=== PATIENT | female | born 1950 | race Caucasian/White ===

== ENCOUNTER → 2018-09-20 14:52 | Outpatient (CLI) | payer MEDICARE, OTHER, SELFPAY ==
--- NOTE | 2018-09-20 | DI.ECHO.S_ITS ---
[facility] +---------+ : : [address] : : : : [id number] : : : : Phone: [phone]+ Echocardiogram Report + + :Name: TAJ GUERRERO Study Date: 09/20/2018 Height: 62 in : [id number] Weight: 137 lb : : Gender: Female BSA: 1.6 m2 : :: 1950 Age: 67 yrs BP: 150/80 mmHg: :Reason For Study: HYPERTENSION : : Performed By: Caren Hernandez : :Referring: ZION RICO : + + Interpretation Summary Small left ventricular cavity with hyperdynamic function. The ejection fraction is estimated to be 65-70%. Grade I diastolic dysfunction. Mild mitral annular calcification. Mild mitral regurgitation. Mild aortic valve sclerosis. The ascending aorta is at the upper limits of normal in size. Procedure: A two-dimensional transthoracic echocardiogram with color flow and Doppler was performed. The study quality was technically good. There is no prior echocardiogram noted for this patient. The heart rate ranged between 80- 90 bpm during the study. Left Ventricle: The left ventricular cavity is small. There is normal left ventricular wall thickness. There is no echo evidence for significant left ventricular outflow tract obstruction. The left ventricle is hyperdynamic. The ejection fraction is estimated to be 65-70%. There are no focal wall motion abnormalities. Diastolic parameters suggest a relaxation abnormality of the left ventricle, consistent with probable normal filling pressures. Right Ventricle: The right ventricle is normal size. Right ventricular systolic function is at the lower limits of normal. Atria: The left atrial size is normal. Right atrium is small. There is no Doppler evidence for an interatrial shunt. Mitral Valve: There is mild mitral annular calcification. The mitral valve leaflets appear mildly thickened, but open well. There is mild mitral regurgitation. There is a flat closure plane of the mitral valve leaflets with a posteriorly directed jet of mild mitral regurgitation (best visualized from the parasteral long axis view). Aortic Valve: The aortic valve is normal in structure and function. There is mild aortic valve sclerosis. There is no aortic valve stenosis. No aortic regurgitation is present. Tricuspid Valve: The tricuspid valve is normal in structure and function. There is a trace or physiologic amount of tricuspid regurgitation. The right ventricular systolic pressure is estimated to be at least 25 mmHg based on an estimated right atrial pressure of 3 mm Hg. Pulmonic Valve: The pulmonic valve is normal in structure and function. There is a trace or physiologic amount of pulmonic regurgitation. Great Vessels: The aortic root is normal size. The ascending aorta is at the upper limits of normal in size. The aortic arch is normal in size. The pulmonary artery is normal size. The IVC is of normal diameter and collapses greater than 50% with a sniff. This suggests a low right atrial pressure of 3 mm Hg. Pericardium/ Pleura There is no pericardial effusion. There is no pleural effusion. MMode/2D Measurements & Calculations LVIDd: 3.9 cm LVOT diam: 1.9 cm LVIDs: 2.1 cm Ao root diam: 2.9 cm FS: 46.6 % asc Aorta Diam: 3.4 cm IVSd: 0.82 cm Ao Arch Diam (Prox Trans): 2.5 cm LVPWd: 0.73 cm LV ricci. diameter/BSA (cm/m^2): 2.4 LV sys. diameter/BSA (cm/m^2): 1.3 LA A2 area: 17.8 cm2 RA long axis: 4.7 cm LA A4 area: 17.9 cm2 RA area: 10.2 cm2 LA length (vol): 5.8 cm RA vol: 19.0 ml LA vol: 46.8 ml RA : 11.6 ml/m2 LA vol index: 28.8 ml/m2 RVD1 (basal): 2.5 cm TAPSE: 1.7 cm Doppler Measurements & Calculations Ao V2 max: 173.8 cm/sec LVOT Max Declan: 115.6 cm/sec Ao V2 mean: 124.8 cm/sec LV V1 max P.3 mmHg Ao max P.1 mmHg LV V1 VTI: 17.8 cm Ao mean P.7 mmHg VADIM(I,D): 1.5 cm2 Ao V2 VTI: 32.5 cm VADIM(V,D): 1.8 cm2 sev ratio: 0.55 VADIM indexed to BSA (cm^2/m^2): 0.91 MV E max declan: 78.8 cm/sec TR max declan: 236.2 cm/sec MV A max declan: 113.0 cm/sec TR max P.3 mmHg MV E/A: 0.70 Med Peak E' Declan: 10.8 cm/sec E/E' med: 7.3 Lat Peak E' Declan: 9.1 cm/sec E/E' lat: 8.7 E/e' average: 8.0 MV dec time: 0.45 sec Electronically signed by: Mili Tavarez on Reading Physician:09/21/2018 04:59 PM
== END ==
PROVIDERS: Family Provider Internal Medicine; PCP Internal Medicine; Visit Provider Student in an Organized Health Care Education/Training Program
DX: I08.0 Rheumatic disorders of both mitral and aortic valves (principal); I10 Essential (primary) hypertension
CPT/HCPCS: 93306

== ENCOUNTER → 2018-12-25 14:30 | Outpatient (CLI) | payer MEDICARE, OTHER, SELFPAY ==
--- NOTE | 2018-12-25 | DI.MG.S_ITS ---
BILATERAL DIGITAL SCREENING MAMMOGRAM 3D/2D WITH CAD: 12/25/2018 CLINICAL: Routine screening. Family history of breast cancer. Comparison is made to exams dated: 11/17/2017 mammogram - [facility], 08/18/2016 mammogram, and 07/31/2015 mammogram - outside location. There are scattered fibroglandular elements in both breasts. Current study was also evaluated with a Computer Aided Detection (CAD) system. No significant masses, calcifications, or other findings are seen in either breast. There has been no significant interval change. IMPRESSION: NEGATIVE There is no mammographic evidence of malignancy. A 1 year screening mammogram is recommended. This exam was interpreted at Station ID: [id number]. NOTE: For mammograms, a report in lay terms will be sent to the patient. Approximately 15% of breast malignancies will not be visualized mammographically. In the management of a palpable breast mass, a negative mammogram must not discourage biopsy of a clinically suspicious lesion. Electronically Signed By: Elise tian/vu:01/01/2019 12:03:01 letter sent: Normal Exam ACR BI-RADS Category 1: Negative 3341F
== END ==
PROVIDERS: PCP Internal Medicine; Visit Provider Student in an Organized Health Care Education/Training Program
DX: Z12.31 Encounter for screening mammogram for malignant neoplasm of breast (principal); Z80.3 Family history of malignant neoplasm of breast
CPT/HCPCS: 77063; 77067

== ENCOUNTER 2020-06-13 14:49 | Emergency (ER) | payer MEDICARE, OTHER, SELFPAY ==
[2020-06-13 15:22] VITALS: BP 153/69; PULSE 68; RESP 17; TEMP 36.9; O2SAT 99; BMI 24.7
--- NOTE | 2020-06-13 15:42 | DI.RAD.S_ITS ---
PROCEDURE: XR SHOULDER RT MIN 2V INDICATIONS: fall TECHNIQUE: 2 views of the shoulder were acquired. COMPARISON: [facility], , CHEST 1 VIEW, 02/18/2018, 19:10. FINDINGS: Bones: There is an impacted, comminuted fracture seen involving the right humeral neck and right humeral head. No definite shoulder dislocation is seen. The visualized ribs appear intact. No suspicious lytic or blastic lesions are seen. Age-appropriate bony degenerative changes are seen. Soft tissues: No suspicious soft tissue calcifications. IMPRESSION: Impacted, comminuted fracture of the right humeral head and neck. Dictated by: Jewel Chávez M.D. on 06/13/2020 at 15:13 Approved by: Jewel Chávez M.D. on 06/13/2020 at 15:14
--- NOTE | 2020-06-13 16:12 | ED_ITS ---
HPI - Extremity Injury (Upper) <DALY Bonilla - Last Filed: 06/14/20 00:30> General Chief Complaint: Extremity Injury, Upper Stated Complaint: injured her right shoulder from a fall Time Seen by Provider: 06/13/20 15:54 Source: patient Mode of arrival: Wheelchair Limitations: no limitations History of Present Illness HPI narrative: This is a 69 year female, former smoker, who has history of hypertension and hyperlipidemia presents to ED with significant other with chief complain of right anterior shoulder pain after [place] and had status post FOOSH on right hand 2 hours prior coming into ED. Patient denies injuring her head, neck or other areas. Patient is not currently on blood thinner. Patient right dominant hand. Patient reports intact sensation and is able to move her fingers however pain increases with little movements with right hand. Denies previous injury to the affected arm. Related Data Home Medications Medication Instructions Recorded Confirmed amlodipine 5 mg PO DAILY 06/13/20 06/13/20 atorvastatin [Lipitor] 10 mg PO BEDTIME 06/13/20 06/13/20 cephalexin [Keflex] 250 mg PO Q6H 06/13/20 06/13/20 venlafaxine 37.5 mg PO DAILY 06/13/20 06/13/20 Previous Rx's Medication Instructions Recorded ondansetron HCl [Zofran] 4 mg PO BID-TID PRN #7 tab 06/13/20 oxycodone-acetaminophen [Percocet] 1 tab PO TID PRN #14 tab 06/13/20 Allergies Allergy/AdvReac Type Severity Reaction Status Date / Time No Known Drug Allergies Allergy Verified 06/13/20 15:28 Review of Systems <DALY Bonilla - Last Filed: 06/14/20 00:30> Review of Systems Narrative: General: Denies fever, chills, fatigue, malaise, sweats. HEENT: Denies sinus pain, ear pain, sore throat, difficulty swallowing, dizziness. Respiratory: Denies dyspnea, cough, wheezing, hemoptysis, sputum. Cardiovascular: Denies chest pain, palpitations, orthopnea, edema. Gastrointestinal: Denies nausea, vomiting, abdominal pain, diarrhea, constipation, melena. Musculoskeletal: See HPI Skin: Denies rash, skin lesions, or other. Neurologic: Denies weakness, headache, numbness, change in speech, confusion, seizures, incoordination. Psychiatric: No concerning psychosocial issues. Patient History <DALY Bonilla - Last Filed: 06/14/20 00:30> Medical History Dental infection (Acute) Depression (Acute) Hyperlipidemia (Acute) Social History Smoking Status: Former smoker Smoking Status: Former smoker alcohol intake frequency: a few times a week Substance Use Type: does not use Exam <ADLY Bonilla - Last Filed: 06/14/20 00:30> Narrative Exam Narrative: General appearance: well developed, well nourished, in no acute distress. Head: normocephalic, atraumatic, no scalp lesions, non-tender. ENT: Hearing grossly intact. Airway patent. Neck/Thyroid: neck supple, full range of motion, no visible masses or meningeal signs. No JVD, non-tender without lymphadenopathy. Skin: no suspicious rashes, lesions over visible areas. Warm and dry and appropriate color for ethnicity. Heart: no clubbing, no cyanosis, no edema. Lungs: Breathing even and unlabored. No stridor. No accessory muscles used. Able to speak in full sentences. Chest: normal shape and expansion. Abdomen: non-obese, non-distended. Neurologic: alert and oriented. Cognitive exam, [employer] and PNS grossly intact on informal exam. Psych: good eye contact, normal affect. Initial Vital Signs Initial Vital Signs: Vital Signs Temperature 98.5 F 06/13/20 15:22 Pulse Rate 68 06/13/20 15:22 Respiratory Rate 17 06/13/20 15:22 Blood Pressure 153/69 H 06/13/20 15:22 Pulse Oximetry 99 06/13/20 15:22 Extrem Right upper extremity: normal to inspection, normal capillary refill, no joint enlargement, shoulder/upper arm Details: normal to inspection, tenderness Location: of the A-C joint and of the proximal humerus and abnormal ROM Details: held in an abnormal fashion Details: in ADduction, pain with active ROM and pain with passive ROM; no swelling, elbow/forearm Details: normal to inspection; no tenderness and no swelling, wrist Details: normal to inspection; no tenderness and no swelling and hand Details: normal to inspection, normal capillary refill, neuromotor exam normal, neurosensory exam normal, tendon exam normal, vascular exam Details: radial pulse present and normal capillary refill and normal ROM of fingers; no tenderness; ROM limited, no cyanosis and no edema <Jeny Patino DO - Last Filed: 06/14/20 08:00> Initial Vital Signs Initial Vital Signs: Vital Signs Temperature 98.5 F 06/13/20 15:22 Pulse Rate 68 06/13/20 15:22 Respiratory Rate 17 06/13/20 15:22 Blood Pressure 153/69 H 06/13/20 15:22 Pulse Oximetry 99 06/13/20 15:22 Procedures <DALY Bonilla - Last Filed: 06/14/20 00:30> Orthopedic Splinting/Casting Injury #1: Side: right Upper Extremity Injury Location: shoulder Upper Extremity Immobilizer: sling/shoulder immobilizer Post splinting neuro exam: intact Post splinting vascular exam: intact Placed by: Nursing Scores <DALY Bonilla - Last Filed: 06/14/20 00:30> GCS Efra coma scale eye opening: Spontaneous Efra coma scale verbal response: Orientated Efra coma scale motor response: Obey commands Efra coma scale total score: 15 Course <DALY Bonilla - Last Filed: 06/14/20 00:30> Orders Ordered: Discontinued Medications Acetaminophen (Tylenol) 650 mg PO NOW ONE Stop: 06/13/20 16:13 Last Admin: 06/13/20 16:42 Dose: 650 mg Documented by: ANA Hydrocodone Bitart/Acetaminophen (Swan 5/325) 1 tab PO NOW ONE Stop: 06/13/20 16:32 Last Admin: 06/13/20 16:42 Dose: 1 tab Documented by: ANA Hydrocodone Bitart/Acetaminophen (Vicodin 5/325 Prepack) 1 bottle MISC SEEINSTR ONE Stop: 06/13/20 17:50 Last Admin: 06/13/20 18:25 Dose: 1 bottle Documented by: KAREN Ibuprofen (Advil) 400 mg PO NOW ONE Stop: 06/13/20 16:13 Last Admin: 06/13/20 16:42 Dose: 400 mg Documented by: ANA Morphine Sulfate (Morphine) 4 mg IM NOW ONE Stop: 06/13/20 17:37 Last Admin: 06/13/20 17:42 Dose: 4 mg Documented by: ANA Ondansetron HCl (Zofran Odt) 4 mg SL NOW ONE Stop: 06/13/20 18:05 Last Admin: 06/13/20 18:09 Dose: 4 mg Documented by: ANA Vital Signs Vital signs: Vital Signs - 8 hr 06/13/20 18:29 Pulse Rate 85 Blood Pressure 148/70 H Pulse Oximetry 97 <Jeny Patino DO - Last Filed: 06/14/20 08:00> Orders Ordered: Discontinued Medications Acetaminophen (Tylenol) 650 mg PO NOW ONE Stop: 06/13/20 16:13 Last Admin: 06/13/20 16:42 Dose: 650 mg Documented by: ANA Hydrocodone Bitart/Acetaminophen (Swan 5/325) 1 tab PO NOW ONE Stop: 06/13/20 16:32 Last Admin: 06/13/20 16:42 Dose: 1 tab Documented by: ANA Hydrocodone Bitart/Acetaminophen (Vicodin 5/325 Prepack) 1 bottle MISC SEEINSTR ONE Stop: 06/13/20 17:50 Last Admin: 06/13/20 18:25 Dose: 1 bottle Documented by: KAREN Ibuprofen (Advil) 400 mg PO NOW ONE Stop: 06/13/20 16:13 Last Admin: 06/13/20 16:42 Dose: 400 mg Documented by: ANA Morphine Sulfate (Morphine) 4 mg IM NOW ONE Stop: 06/13/20 17:37 Last Admin: 06/13/20 17:42 Dose: 4 mg Documented by: ANA Ondansetron HCl (Zofran Odt) 4 mg SL NOW ONE Stop: 06/13/20 18:05 Last Admin: 06/13/20 18:09 Dose: 4 mg Documented by: ANA Vital Signs Vital signs: Vital Signs - 8 hr 06/13/20 18:29 Pulse Rate 85 Blood Pressure 148/70 H Pulse Oximetry 97 MDM - Extremity Injury (Upper) <DALY Bonilla - Last Filed: 06/14/20 00:30> Differential Diagnosis Differential diagnosis: Likely dislocation of shoulder, fracture of humerus and other (Shoulder fracture) Medical Records Attestation: I reviewed the patient's medical records. Imaging Data XR-Shoulder RT: Radiologist's Impression: [address] [address] XRay Report Signed Patient: Lanette Mora EMR#: [id number] : 8Acct:[id number] Age/Sex: 69 / FDate of Service: 06/13/20 Loc: ED Accession Number: [id number] Procedure: XR shoulder RT min 2V Ordering Provider: Enrique Serrato PROCEDURE: XR SHOULDER RT MIN 2V INDICATIONS: fall TECHNIQUE: 2 views of the shoulder were acquired. COMPARISON: [facility], , CHEST 1 VIEW, 02/18/2018, 19:10. FINDINGS: Bones: There is an impacted, comminuted fracture seen involving the right humeral neck and right humeral head. No definite shoulder dislocation is seen. The visualized ribs appear intact. No suspicious lytic or blastic lesions are seen. Age-appropriate bony degenerative changes are seen. Soft tissues: No suspicious soft tissue calcifications. IMPRESSION: Impacted, comminuted fracture of the right humeral head and neck. Dictated by: Jewel Chávez M.D. on 06/13/2020 at 15:13 Approved by: Jewel Chávez M.D. on 06/13/2020 at 15:14 MDM Narrative Medical decision making narrative: Right shoulder x-ray shows impacted come in as take fracture of the right humeral head and neck. With no definite shoulder dislocation was appreciated. Patient has intact sensation distally and intact mobility to fingers and denies pain in elbow or wrist. Patient reports increasing pain with little movements. Patient initially medicated with 1 tab of Swan, Tylenol, ibuprofen and applied ice pack on affected site for pain without much improvement. Additionally administer morphine 4 mg IM injection which patient found relief of pain. Due to morphine side effects with nausea patient given 4 mg of ODT Zofran. After pain has been managed, was able to apply shoulder immobilizer. Patient discharged to home with prepack Swan and transmitted Rx for oxycodone and Zofran as needed use with narcotic pain medication precautions. Patient advised to use [id number] Tylenol and or Motrin as needed for baseline pain management. Consulted Dr. Davis and he recommended pain management and using shoulder immobilizer and to follow-up with [facility] this coming week. Return precautions were discussed with patient and patient verbalized understanding and agreement with treatment plan. Discharge Plan Departure Patient Disposition: Home Clinical Impression: Fracture, humerus, anatomical neck Qualifiers: Encounter type: initial encounter Fracture type: closed Laterality: right Qualified Code(s): S42.291A - Other displaced fracture of upper end of right humerus, initial encounter for closed fracture Fall Qualifiers: Encounter type: initial encounter Qualified Code(s): W19.XXXA - Unspecified fall, initial encounter Discharge Date/Time: 06/13/20 18:37 Instructions: DI for Humeral Fracture Activity Restrictions/Additional Instructions: You have been diagnosed with [right impacted comminuted fracture of right humeral head and neck on dominant hand.]. What to do: *Take your medications as directed. Please take [id number] Tylenol and or Motrin as needed for discomfort. Tylenol 650 up to 3 to 4 times a day as needed. Ibuprofen 400 mg up to 3 to 4 times a day as needed for pain. For severe pain, you can take a Percocet which is narcotic pain medication. It can cause sedation so please do not drive, drink alcohol, or operate heavy equipments. Also he can cause constipation so please take precautions to prevent this by using [id number] stool softener, increase water intake and high fiber diet. Adults can take upto [id number] mg of Tylenol products in 24 hour. Percocet has been transmitted to [facility] in [place]. *Follow up with your primary care provider in 2-3 days, call for an appointment. Please contact [facility] on Monday. Let them know you were seen in the ED and that we asked you to be seen in follow up. *Return to ED if you have any new, worsening, or concerning symptoms, such as [chest pain, breathing difficulty, unable to tolerate fluids, increasing pain/numbness/weakness to affected arm, fever or any other concerns]. Prescriptions: New oxycodone-acetaminophen [Percocet] 5-325 mg tablet 1 tab PO TID PRN (Reason: pain) Qty: 14 RF: 0 ondansetron HCl [Zofran] 4 mg tablet 4 mg PO BID-TID PRN (Reason: nausea and vomiting) Qty: 7 RF: 0 No Action venlafaxine 37.5 mg capsule,extended release 24hr 37.5 mg PO DAILY RF: 0 atorvastatin [Lipitor] 10 mg Tablet 10 mg PO BEDTIME RF: 0 cephalexin [Keflex] 250 mg Capsule 250 mg PO Q6H RF: 0 amlodipine 5 mg Tablet 5 mg PO DAILY RF: 0 Referrals: [facility] [Provider Group] Chance Mcgowan MD [Primary Care Provider] - <Jeny Patino DO - Last Filed: 06/14/20 08:00> Cosign ED Attending Cosjorge luisature Attestation: I was immediately available in the department for consultation. Documentation has been reviewed. I agree with assessment and plan.
[2020-06-13] MEDS: ACETAMINOPHEN 325 MG TABLET 650 MG PO (16:42)
[2020-06-13] MEDS: HYDROCODONE/ACET 5/325 TABLET 1 TAB PO (16:42)
[2020-06-13] MEDS: IBUPROFEN 400 MG TABLET PO (16:42)
[2020-06-13] MEDS: MORPHINE 4 MG/ML INJ IM (17:42)
[2020-06-13] MEDS: ONDANSETRON 4 MG ODT SL (18:09)
[2020-06-13] MEDS: HYDROCODONE/ACET 5/325 PREPACK 1 BOTTLE MISC (18:25)
[2020-06-13 18:29] VITALS: BP 148/70; PULSE 85; O2SAT 97
== END 2020-06-13 18:37 | disposition home or self-care (01) ==
PROVIDERS: Emergency Provider Nurse Practitioner Family; PCP Internal Medicine
DX: S42.291A Other displaced fracture of upper end of right humerus, initial encounter for closed fracture (principal); W19.XXXA Unspecified fall, initial encounter
CPT/HCPCS: 73030; 96372; 99283; 99284; J2270

== ENCOUNTER → 2020-07-07 11:59 | Outpatient (CLI) | payer MEDICARE, OTHER, SELFPAY ==
--- NOTE | 2020-07-07 | DI.CT.S_ITS ---
PROCEDURE: CT UE RT WO CON INDICATIONS: Proximal humerus fracture TECHNIQUE: Noncontrast 1-1.5 mm thick sections acquired from the acromioclavicular joint to the inferior scapula, with coronal and sagittal reformatting. COMPARISON: [facility], [place], XR SHOULDER 2+ VIEWS RIGHT, 06/23/2020, 14:09. FINDINGS: Image quality: Excellent. Bones: As seen on prior shoulder radiograph, acute comminuted and impacted fracture involving the surgical neck /proximal humeral shaft is seen with superior migration of humeral shaft and fracture line extending to involve both greater and lesser tuberosities. No displacement of the greater tuberosity fragment is seen. There is up to 1.2 cm impaction at fracture site. Slight antral and lateral displacement of proximal humeral shaft is seen in relation to humeral head. No other fracture is seen. No shoulder dislocation. Mild acromioclavicular joint osteoarthritic changes are seen. Soft tissues: There is soft tissue swelling over proximal humeral shaft fracture site. Small glenohumeral joint effusion is seen. No gross full-thickness rotator cuff tendon rupture is noted. IMPRESSION: 1. Comminuted and impacted humeral neck/proximal shaft fracture as above. No other fracture or dislocation. Mild acromioclavicular joint osteoarthritis. 2. Small to moderate joint effusion. No gross full-thickness rotator cuff tendon rupture. Dictated by: Fernando Miranda M.D. on 07/07/2020 at 14:56 Approved by: Fernando Miranda M.D. on 07/07/2020 at 14:59
== END ==
PROVIDERS: PCP Student in an Organized Health Care Education/Training Program; Referring Provider Student in an Organized Health Care Education/Training Program; Visit Provider Orthopaedic Surgery
DX: S42.211A Unspecified displaced fracture of surgical neck of right humerus, initial encounter for closed fracture (principal); M19.011 Primary osteoarthritis, right shoulder; X58.XXXA Exposure to other specified factors, initial encounter
CPT/HCPCS: 73200

== ENCOUNTER → 2020-09-01 16:31 | Outpatient (CLI) | payer MEDICARE, OTHER, SELFPAY ==
--- NOTE | 2020-09-01 | DI.MG.S_ITS ---
BILATERAL DIGITAL SCREENING MAMMOGRAM 3D/2D WITH CAD: 09/01/2020 CLINICAL: Routine screening. Family history of breast cancer. Comparison is made to exams dated: 12/25/2018 mammogram, 11/17/2017 mammogram - [facility], 08/18/2016 mammogram, 07/23/2015 mammogram, and 03/05/2013 mammogram - outside location. The tissue of both breasts is heterogeneously dense. This may lower the sensitivity of mammography. Current study was also evaluated with a Computer Aided Detection (CAD) system. No significant masses, calcifications, or other findings are seen in either breast. There has been no significant interval change. IMPRESSION: NEGATIVE There is no mammographic evidence of malignancy. A 1 year screening mammogram is recommended. This exam was interpreted at Station ID: [id number]. NOTE: For mammograms, a report in lay terms will be sent to the patient. Approximately 15% of breast malignancies will not be visualized mammographically. In the management of a palpable breast mass, a negative mammogram must not discourage biopsy of a clinically suspicious lesion. Electronically Signed By: Abe lópez/vu:09/01/2020 17:42:43 letter sent: Normal Exam ACR BI-RADS Category 1: Negative [id number]
== END ==
PROVIDERS: PCP Student in an Organized Health Care Education/Training Program; Referring Provider Student in an Organized Health Care Education/Training Program; Visit Provider Student in an Organized Health Care Education/Training Program
DX: Z12.31 Encounter for screening mammogram for malignant neoplasm of breast (principal); Z80.3 Family history of malignant neoplasm of breast
CPT/HCPCS: 77063; 77067

== ENCOUNTER → 2020-09-25 11:36 | Outpatient (CLI) | payer MEDICARE, OTHER, SELFPAY ==
[2020-09-25 16:23] LABS: Vitamin D 25 Hydroxy (D3) 20.4 ng/mL (30.0-100.0)
[2020-09-26 12:38] LABS: Calcium 10.3 mg/dL (8.7-10.3); Parathyroid Hormone, Intact 90 pg/mL (15-65)
== END ==
PROVIDERS: PCP Student in an Organized Health Care Education/Training Program; Referring Provider Student in an Organized Health Care Education/Training Program; Visit Provider Student in an Organized Health Care Education/Training Program
DX: M85.852 Other specified disorders of bone density and structure, left thigh (principal); N95.9 Unspecified menopausal and perimenopausal disorder; Z87.891 Personal history of nicotine dependence
CPT/HCPCS: 36415; 77080; 82306; 82310; 83970

== ENCOUNTER → 2020-10-26 11:16 | Outpatient (CLI) | payer MEDICARE, OTHER, SELFPAY ==
[2020-10-26 12:28] LABS: COVID19 -Nasal RAPID Negative (Negative)
== END ==
PROVIDERS: PCP Student in an Organized Health Care Education/Training Program; Visit Provider Surgery
DX: Z01.812 Encounter for preprocedural laboratory examination (principal); Z20.822 Contact with and (suspected) exposure to COVID-19
CPT/HCPCS: 87635; C9803

== ENCOUNTER 2020-10-27 13:18 | Day surgery (SDC) | payer MEDICARE, SELFPAY ==
[2020-10-27] VITALS (7 sets, daily range): BP systolic 109–160; BP diastolic 57–90; PULSE 71–100; RESP 12–18; TEMP 36–37; O2SAT 97–100; BMI 24.5
[2020-10-27] MEDS: SODIUM CHLORIDE 0.9% 1,000 ML 200 ML IV (13:43)
--- NOTE | 2020-10-27 14:06 | P.HP_ITS ---
History of Present Illness History of Present Illness Date Patient Seen: 10/27/20 Time Patient Seen: 14:06 Chief complaint: SD Narrative: This is a 70-year-old woman here for follow-up screening colonoscopy. Per the patient she had a screening colonoscopy 10 years ago when she lived in [place], with no polyps found on that exam. I do not have a copy of that procedure report. She denies any history of melena, hematochezia, unexplained abdominal pain, or unexplained weight loss since the last colonoscopy. She denies any family history of colon polyps or colon cancers. She says she is otherwise well, denies any significant cardiac pulmonary or renal abnormalities. ROS positive for sinus drainage, anxiety, depression. Thirteen system review is otherwise negative other than as mentioned below and in HPI. PE: GENERAL: Well groomed and cooperative. Appears stated age. Answers questions promptly and appropriately. Vital signs noted. HENT: Normocephalic, atraumatic. Hearing intact. EYES: Conjunctiva pink, sclera white, no periorbital swelling. CARDIOVASCULAR: Regular rate. No pedal edema. RESPIRATORY: Non-tachypneic, breathing comfortably on room air. GASTROINTESTINAL: Abdomen soft and non-distended GENITALURINARY: No flank tenderness. MUSCULOSKELETAL: Equal tone and mass bilaterally. SKIN: Warm, dry, soft, appropriate color for ethnicity. No other lesions, rashes, or wounds. NEURO: Alert and Oriented X 3. No gross sensory deficits, or cognitive issues. PSYCH: Appropriate affect and mood. Patient History Medical History (Updated 10/27/20 @ 14:09 by Vangie Curry MD) Dental infection Depression Hyperlipidemia Family & Social History Social History: household members spouse Tobacco & Substance use: Smoking Status Former smoker alcohol intake frequency a few times a month Substance Use Type does not use Meds Home Medications and Allergies Home Medications Medication Instructions Recorded Confirmed Type amlodipine 5 mg PO DAILY 06/13/20 10/27/20 History atorvastatin [Lipitor] 10 mg PO BEDTIME 06/13/20 10/27/20 History venlafaxine 37.5 mg PO DAILY 06/13/20 10/27/20 History Allergies Allergy/AdvReac Type Severity Reaction Status Date / Time No Known Drug Allergies Allergy Verified 06/13/20 15:28 Exam Vital Signs (past 8 hours): - 10/27/20 13:35 Temperature 98.6 F Pulse Rate 100 H Respiratory Rate 16 Blood Pressure 160/90 H Pulse Oximetry 100 Oxygen Delivery Method Room Air Assessment & Plan Assessment and plan (1) At average risk for colon cancer: Status: Acute (2) Encounter for screening colonoscopy: Status: Acute (3) Hypertension: Status: Acute (4) History of cardiac murmur: Status: Acute (5) History of deep vein thrombosis: Status: Acute (6) Hx of cholecystectomy: Status: Acute (7) Depression: Status: Acute Assessment & Plan narrative: This 70-year-old woman of average risk for colon cancer, and it is been 10 years since her last screening colonoscopy. Risks and benefits of screening colonoscopy and possible polypectomy were discussed with the patient including risk of bleeding, perforation, need for additional procedures, risks of anesthesia. The patient desires to proceed with the colonoscopy procedure. Plan: Proceed to the endoscopy suite for colonoscopy with procedural sedation COVID-19 COVID-19 status: Negative Result date/Date tested (Pos, Neg/Pending): 10/26/20 Time Spent With Patient Time with patient: 25 - 35 minutes Quality VTE Deep Vein Thrombosis/Pulmonary Embolism Present on Admission: No
--- NOTE | 2020-10-27 14:11 | P.OP.ENDO_ITS ---
Operative Date/Time/Diagnoses Date of procedure: 10/27/20 Time of procedure: 14:11 Pre-op diagnosis: Average risk for colon cancer, due for screening colonoscopy Post-op diagnosis: other (Normal colon) Procedure & Clinicians Study performed: Colonoscopy Procedural sedation performed by the endoscopist Same procedure as scheduled: Yes Indications: Average risk for colon cancer, ten years since last colonoscopy Surgeon: Vangie Curry Procedure Notes SCOAP/Timeout: Performed Procedure in detail: The patient was brought to the room and placed in left lateral decubitus position with all bony prominences padded. A time-out was performed and then the patient was given procedural sedation starting with 4 mg of Versed and 100 mcg of fentanyl. A total of 5 mg of Versed and 150 micro g of fentanyl were given for the entire procedure. Vitals were monitored throughout the procedure and remained stable. Once adequately sedated, the procedure was begun. A rectal exam was performed revealing no abnormalities. The colonoscope was then introduced to the rectum and advanced to the cecum in the usual fashion. The cecum was identified by the appendiceal orifice, the mucosal tri- fold, and the ileocecal valve. The scope was then retracted while rotating side to side and examining each mucosal fold. At the conclusion of the procedure retroflexion was performed and small grade 1-2 internal hemorrhoids without stigmata of bleeding were seen. The scope was then withdrawn from the rectum the procedure was concluded. The patient tolerated the procedure well and was transferred to the PACU in stable condition. Scope withdrawal time: 11 Sedation minutes: 25 Specimen(s): none sent Complications: none Impression: Normal colon Post-procedure Recommendations: Colonscopy in 10 years (Repeat colonoscopy in 10 years if healthy enough for the procedure at that time. Consider repeat colonoscopy sooner than 10 years if clinically indicated.) Follow up: as needed Disposition: PACU
[2020-10-27] MEDS: fentaNYL 250 MCG/5 ML INJ IV (14:24)
[2020-10-27] MEDS: MIDAZOLAM 5 MG/5 ML VIAL IV (14:24)
--- NOTE | 2020-10-27 15:28 | SUR.PHASEII ---
called, available for pickler helper, pt w/o pain or nausea and belly is soft.
== END 2020-10-27 15:29 | disposition home or self-care (01) ==
PROVIDERS: PCP Student in an Organized Health Care Education/Training Program; Referring Provider Student in an Organized Health Care Education/Training Program; Visit Provider Surgery
PROC: 0DJD8ZZ Inspection of Lower Intestinal Tract, Via Natural or Artificial Opening Endoscopic (ICD-10-PCS; CPT 45378; principal; 2020-10-27 14:30)
DX: Z12.11 Encounter for screening for malignant neoplasm of colon (principal); F32.9 Major depressive disorder, single episode, unspecified; E78.5 Hyperlipidemia, unspecified; K64.0 First degree hemorrhoids
CPT/HCPCS: G0121; 99152; J2250; J3010

== ENCOUNTER → 2021-09-14 17:34 | Outpatient (CLI) | payer MEDICARE, SELFPAY ==
--- NOTE | 2021-09-14 | DI.MG.S_ITS ---
BILATERAL DIGITAL SCREENING MAMMOGRAM 3D/2D WITH CAD: 09/14/2021 CLINICAL: Routine screening. Family history of breast cancer. Comparison is made to exams dated: 09/01/2020 mammogram, 12/25/2018 mammogram, and 11/17/2017 mammogram - [facility]. The tissue of both breasts is heterogeneously dense. This may lower the sensitivity of mammography. Current study was also evaluated with a Computer Aided Detection (CAD) system. There is a possible asymmetry in the right breast middle depth central to the nipple seen on the craniocaudal view only. There is architectural distortion associated with the asymmetry. There is a possible asymmetry in the left breast anterior depth central to the nipple seen on the craniocaudal view only. There is architectural distortion associated with the asymmetry. No other significant masses or calcifications are seen in either breast. IMPRESSION: INCOMPLETE: NEEDS ADDITIONAL IMAGING EVALUATION The possible asymmetry in the right breast middle depth central to the nipple seen on the craniocaudal view only is indeterminate. A diagnostic mammogram and ultrasound is recommended. The possible asymmetry in the left breast anterior depth central to the nipple seen on the craniocaudal view only is indeterminate. A diagnostic mammogram and ultrasound is recommended. This exam was interpreted at Station ID: [id number]. NOTE: For mammograms, a report in lay terms will be sent to the patient. Approximately 15% of breast malignancies will not be visualized mammographically. In the management of a palpable breast mass, a negative mammogram must not discourage biopsy of a clinically suspicious lesion. Electronically Signed By: Kwabena Byers M.D., jr/vu:09/15/2021 11:18:39 letter sent: Additional Imaging Needed ACR BI-RADS Category 0: Incomplete 3340F
== END ==
PROVIDERS: PCP Student in an Organized Health Care Education/Training Program; Referring Provider Student in an Organized Health Care Education/Training Program; Visit Provider Student in an Organized Health Care Education/Training Program
DX: Z12.31 Encounter for screening mammogram for malignant neoplasm of breast (principal); Z80.3 Family history of malignant neoplasm of breast
CPT/HCPCS: 77063; 77067

== ENCOUNTER → 2021-10-14 13:23 | Outpatient (CLI) | payer MEDICARE, SELFPAY ==
--- NOTE | 2021-10-14 | DI.MG.S_ITS ---
BILATERAL DIGITAL DIAGNOSTIC MAMMOGRAM 3D/2D WITH ADDITIONAL VIEWS: 10/14/2021 CLINICAL: Additional evaluation requested from prior study. Comparison is made to exams dated: 09/14/2021 mammogram, 09/01/2020 mammogram, 12/25/2018 mammogram, and 11/17/2017 mammogram - [facility]. The tissue of both breasts is heterogeneously dense. This may lower the sensitivity of mammography. The previously seen possible asymmetries in the right and left breast are no longer visualized, presumably secondary to superimposed fibroglandular breast tissue on the prior exam. No significant masses, calcifications, or other findings are seen in either breast. IMPRESSION: NEGATIVE There is no mammographic evidence of malignancy. A 1 year screening mammogram is recommended. This exam was interpreted at Station ID: [id number]. NOTE: For mammograms, a report in lay terms will be sent to the patient. Approximately 15% of breast malignancies will not be visualized mammographically. In the management of a palpable breast mass, a negative mammogram must not discourage biopsy of a clinically suspicious lesion. Electronically Signed By: Rios bernabe/vu:10/14/2021 13:57:58 letter sent: Normal Exam ACR BI-RADS Category 1: Negative 3341F
== END ==
PROVIDERS: PCP Student in an Organized Health Care Education/Training Program; Referring Provider Student in an Organized Health Care Education/Training Program; Visit Provider Student in an Organized Health Care Education/Training Program
DX: R92.8 Other abnormal and inconclusive findings on diagnostic imaging of breast (principal)
CPT/HCPCS: 77066; G0279

== ENCOUNTER → 2021-11-03 12:12 | Outpatient (CLI) | payer MEDICARE, SELFPAY ==
--- NOTE | 2021-11-03 12:14 | DI.RAD.S_ITS ---
PROCEDURE: XR DEXA AXIAL SKELETON INDICATIONS: Unspecified menopausal and perimenopausal disorder COMPARISON: [facility], CR, XR DEXA AXIAL SKELETON, 09/25/2020, 11:51. FINDINGS: This blank DEXA report has been sent in error by the PACS system. The correct and complete report will be forthcoming in 1-2 days. Thank you for your patience and understanding. Dictated by: Mindy Echeverria MD, PhD on 11/03/2021 at 13:42 Approved by: Mindy Echeverria MD, PhD on 11/03/2021 at 13:42
== END ==
PROVIDERS: PCP Student in an Organized Health Care Education/Training Program; Referring Provider Student in an Organized Health Care Education/Training Program; Visit Provider Student in an Organized Health Care Education/Training Program
DX: M85.851 Other specified disorders of bone density and structure, right thigh (principal); Z78.0 Asymptomatic menopausal state; Z87.891 Personal history of nicotine dependence
CPT/HCPCS: 77080

== ENCOUNTER → 2022-11-07 14:17 | Outpatient (CLI) | payer MEDICARE, SELFPAY ==
--- NOTE | 2022-11-07 14:19 | DI.MG.S_ITS ---
BILATERAL DIGITAL SCREENING MAMMOGRAM 3D/2D WITH CAD: 11/07/2022 CLINICAL: Routine screening. Family history of breast cancer. Comparison is made to exams dated: 10/14/2021 mammogram, 09/14/2021 mammogram, 09/01/2020 mammogram, and 12/25/2018 mammogram - [facility]. Both breasts are heterogeneously dense, which may obscure small masses (category c / 51-75% glandular tissue). Current study was also evaluated with a Computer Aided Detection (CAD) system. No significant masses, calcifications, or other findings are seen in either breast. There has been no significant interval change. IMPRESSION: NEGATIVE There is no mammographic evidence of malignancy. A 1 year screening mammogram is recommended. Based on the Tyrer Cuzick model (a risk assessment model) the patient's lifetime risk is 8.3% and her 10 year risk is 7.5%. According to the ACR, ACS, and NCCN guidelines, an annual breast MRI exam along with mammogram is recommended if the patient's lifetime risk is 20% or greater. This exam was interpreted at Station ID: [id number]. NOTE: For mammograms, a report in lay terms will be sent to the patient. Approximately 15% of breast malignancies will not be visualized mammographically. In the management of a palpable breast mass, a negative mammogram must not discourage biopsy of a clinically suspicious lesion. Electronically Signed By: Sherwin downs/vu:11/07/2022 17:53:31 letter sent: Normal Exam ACR BI-RADS Category 1: Negative [id number]
== END ==
PROVIDERS: PCP Student in an Organized Health Care Education/Training Program; Referring Provider Student in an Organized Health Care Education/Training Program; Visit Provider Student in an Organized Health Care Education/Training Program
DX: Z12.31 Encounter for screening mammogram for malignant neoplasm of breast (principal); Z80.3 Family history of malignant neoplasm of breast
CPT/HCPCS: 77063; 77067

== ENCOUNTER → 2023-05-17 14:18 | Outpatient (CLI) | payer MEDICARE, SELFPAY ==
--- NOTE | 2023-05-17 14:19 | DI.RAD.S_ITS ---
PROCEDURE: XR KNEE LT 4V INDICATIONS: Acute knee pain TECHNIQUE: 3 views of the knee were acquired. COMPARISON: None. FINDINGS: Bones: No fractures or dislocations. No suspicious bony lesions. Mild medial compartment joint space narrowing Soft tissues: No joint effusion. No suspicious soft tissue calcifications. IMPRESSION: Mild degenerative changes Approved by: John Kate M.D. on 05/17/2023 at 19:47
== END ==
PROVIDERS: PCP Student in an Organized Health Care Education/Training Program; Referring Provider Student in an Organized Health Care Education/Training Program; Visit Provider Student in an Organized Health Care Education/Training Program
DX: M25.562 Pain in left knee (principal)
CPT/HCPCS: 73564

== ENCOUNTER → 2023-11-16 14:08 | Outpatient (CLI) | payer MEDICARE, SELFPAY ==
--- NOTE | 2023-11-16 | DI.MG.S_ITS ---
BILATERAL DIGITAL SCREENING MAMMOGRAM 3D/2D WITH CAD: 11/16/2023 CLINICAL: Routine screening. Family history of breast cancer. Comparison is made to exams dated: 11/07/2022 mammogram, 09/14/2021 mammogram, and 09/01/2020 mammogram - [facility]. Both breasts are heterogeneously dense, which may obscure small masses (category c / 51-75% glandular tissue). Current study was also evaluated with a Computer Aided Detection (CAD) system. No significant masses, calcifications, or other findings are seen in either breast. There has been no significant interval change. IMPRESSION: NEGATIVE There is no mammographic evidence of malignancy. A 1 year screening mammogram is recommended. Based on the Tyrer Cuzick model (a risk assessment model) the patient's lifetime risk is 7.7% and her 10 year risk is 7.7%. According to the ACR, ACS, and NCCN guidelines, an annual breast MRI exam along with mammogram is recommended if the patient's lifetime risk is 20% or greater. This exam was interpreted at Station ID: [id number]. NOTE: For mammograms, a report in lay terms will be sent to the patient. Approximately 15% of breast malignancies will not be visualized mammographically. In the management of a palpable breast mass, a negative mammogram must not discourage biopsy of a clinically suspicious lesion. Electronically Signed By: Hernán murrell/vu:11/16/2023 15:14:37 letter sent: Normal Exam ACR BI-RADS Category 1: Negative 3341F
== END ==
LOC: MAMMO 14:10
PROVIDERS: PCP Student in an Organized Health Care Education/Training Program; Referring Provider Student in an Organized Health Care Education/Training Program; Visit Provider Student in an Organized Health Care Education/Training Program
DX: Z12.31 Encounter for screening mammogram for malignant neoplasm of breast (principal); Z80.3 Family history of malignant neoplasm of breast; R92.333 Mammographic heterogeneous density, bilateral breasts
CPT/HCPCS: 77063; 77067

== ENCOUNTER 2023-11-28 11:26 | Emergency (ER) | payer MEDICARE, SELFPAY ==
[2023-11-28 11:37] VITALS: BP 140/66; PULSE 86; RESP 18; TEMP 36.5; O2SAT 98; BMI 25.6
== END 2023-11-28 13:50 | disposition left against medical advice (07) ==
PROVIDERS: PCP Student in an Organized Health Care Education/Training Program
DX: R06.02 Shortness of breath (principal)
CPT/HCPCS: 99281

== ENCOUNTER → 2025-03-10 09:36 | Outpatient (CLI) | payer MEDICARE, SELFPAY | PROVIDERS: PCP Student in an Organized Health Care Education/Training Program; Visit Provider Nurse Practitioner Family | DX: R30.0 Dysuria (principal); N94.89 Other specified conditions associated with female genital organs and menstrual cycle | CPT/HCPCS: 87086; 87210 ==

== ENCOUNTER 2025-03-10 10:07 | Emergency (ER) | payer MEDICARE, SELFPAY ==
[2025-03-10] VITALS (7 sets, daily range): BP systolic 155–177; BP diastolic 58–84; PULSE 81–92; RESP 14; TEMP 36.6; O2SAT 98–100; BMI 25.9
--- NOTE | 2025-03-10 11:04 | PC.NURSE ---
Pt reports one month of feeling intermittent forgetfulness,hard time finding the word I want to say sometime. Has not had any falls or head trauma. Sent [facility].
[2025-03-10 11:07] LABS: Add Manual Diff / Slide Review NO; Basophils Absolute Auto 100 /uL (0-100); Basophils Percent Auto 0.9 % (0-2); Eosinophils Absolute Auto 100 /uL (0-450); Eosinophils Percent Auto 1.4 % (2-4); Hematocrit 39.6 % (36-46); Hemoglobin 13.3 g/dL (12.0-16.0); Lymphocytes Absolute Auto 1200 /uL (1100-4500); Lymphocytes Percent Auto 13.2 % (25-40); Mean Corpuscular HGB Conc 33.5 % (30-36); Mean Corpuscular Hemoglobin 29.4 PG (26-34); Monocytes Absolute Auto 1400 /uL (0-900); Monocytes Percent Auto 14.8 % (3-14); Neutrophils Absolute Auto 6500 /uL (1500-7000); Neutrophils Percent Auto 69.7 % (50-75); Platelet Count 307 X10^3/uL (150-400); Red Cell Distribution Width 14.3 % (11.6-14.8); White Blood Cell Count 9.3 X10^3/uL (4.5-11.0)
[2025-03-10 11:21] LABS: Alanine Aminotransferase 32 IU/L (<35); Albumin Globulin Ratio 1.4 (1.0-2.8); Alkaline Phosphatase 104 U/L (38-126); Aspartate Aminotransferase 39 IU/L (14-36); BUN Creatinine Ratio 29.4 (6-22); Bilirubin Total 0.4 mg/dL (0.2-1.3); Blood Urea Nitrogen 15 mg/dL (7-17); Calcium 9.7 mg/dL (8.4-10.2); Carbon Dioxide 27 mmol/L (22-32); Chloride 100 mmol/L (98-107); Estimated Glomerular Filt Rate > 60 mL/min (>60); Globulin 3.7 g/dL (1.7-4.1); Glucose 94 mg/dL (70-99); HEMOLYSIS < 15 (0-50); Potassium 4.2 mmol/L (3.4-5.1); Sodium 137 mmol/L (137-145); Total Protein 8.7 g/dL (6.3-8.2)
--- NOTE | 2025-03-10 11:38 | ED.NEUROSD ---
HPI - Neuro Symptoms/Deficit General Chief Complaint: Neuro Symptoms/Deficit Stated Complaint: Confusion , Hard time sleeping sent from [facility] Time Seen by Provider: 03/10/25 11:24 Source: patient Mode of arrival: Ambulatory History of Present Illness HPI Narrative: this is a 74-year-old female who arrives by private vehicle she was referred from urgent Care. She presented to urgent Care concerned about vaginal burning and confusion this morning urinalysis at urgent Care was unremarkable. 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 With respect to her confusion says that she sometimes finds herself forgetting what she is doing or forgetting people's names. She does not have a change in her baseline headache frequency, she is not having fevers he does not have focal numbness or weakness difficulty with the vision. No recent medication changes, does not use alcohol other than an occasional beer, does not use recreational drugs On Anticoagulants: No Related Data Home Medications Medication Instructions Recorded Confirmed amlodipine 5 mg tablet 5 mg PO DAILY 06/13/20 10/08/24 atorvastatin 10 mg tablet (Lipitor) 10 mg PO BEDTIME 06/13/20 10/08/24 venlafaxine 37.5 mg 37.5 mg PO DAILY 06/13/20 10/08/24 capsule,extended release 24 hr Previous Rx's Medication Instructions Recorded amoxicillin 875 mg-potassium 1 tab PO BID #20 tabs 10/08/24 clavulanate 125 mg tablet Allergies Allergy/AdvReac Type Severity Reaction Status Date / Time No Known Drug Allergies Allergy Verified 03/10/25 10:31 Review of Systems Hematologic/Lymphatic On Anticoagulants: No Patient History Medical History Dental infection Depression Hyperlipidemia Social History household members: spouse Smoking Status: Unknown if ever smoked Smoking Status: Unknown if ever smoked alcohol intake frequency: a few times a month Exam Initial Vital Signs Initial Vital Signs: Vital Signs Temperature 97.8 F 03/10/25 10:08 Pulse Rate 92 H 03/10/25 10:08 Respiratory Rate 14 03/10/25 10:08 Blood Pressure 176/84 H 03/10/25 10:08 Pulse Oximetry 99 03/10/25 10:08 Oxygen Delivery Method Room Air 03/10/25 10:08 Neuro Other: She is fully oriented. There are no focal neurologic deficits she is not ataxic. Course Orders Ordered: ED Orders 03/10/25 10:50 CMP [Comprehensive Metabolic Panel] Stat Complete Blood Count AUTO DIFF Stat Vital Signs Vital signs: Vital Signs - 8 hr 03/10/25 10:08 Temperature 97.8 F Pulse Rate 92 H Respiratory Rate 14 Blood Pressure 176/84 H Pulse Oximetry 99 Oxygen Delivery Method Room Air MDM - Neuro Symptoms/Deficit Lab Data Lab results narrative: CBC with diff and CMP remarkable for elevation in BUN creatinine otherwise unremarkable 03/10/25 10:50 03/10/25 10:50 Labs: Lab Results 03/10/25 Range/Units 10:50 WBC 9.3 (4.5-11.0) X10^3/uL RBC 4.50 (4.0-5.2) X10^6/uL Hgb 13.3 (12.0-16.0) g/dL Hct 39.6 (36-46) % MCV 88.0 (80-100) fL MCH 29.4 (26-34) PG MCHC 33.5 (30-36) % RDW 14.3 (11.6-14.8) % Plt Count 307 (150-400) X10^3/uL Neut % (Auto) 69.7 (50-75) % Lymph % (Auto) 13.2 L (25-40) % [place] % (Auto) 14.8 H (3-14) % Eos % (Auto) 1.4 L (2-4) % Baso % (Auto) 0.9 (0-2) % Neut # (Auto) 6500 (5872-8109) /uL Lymph # (Auto) 1200 (3096-0963) /uL [place] # (Auto) 1400 H (0-900) /uL Eos # (Auto) 100 (0-450) /uL Baso # (Auto) 100 (0-100) /uL Sodium 137 (137-145) mmol/L Potassium 4.2 (3.4-5.1) mmol/L Chloride 100 (98-107) mmol/L Carbon Dioxide 27 (22-32) mmol/L BUN 15 (7-17) mg/dL Creatinine 0.51 L (0.52-1.04) mg/dL Estimated GFR > 60 (>60) mL/min BUN/Creatinine Ratio 29.4 H (6-22) Glucose 94 (70-99) mg/dL Calcium 9.7 (8.4-10.2) mg/dL Total Bilirubin 0.4 (0.2-1.3) mg/dL AST 39 H (14-36) IU/L ALT 32 (<35) IU/L Alkaline Phosphatase 104 (38-126) U/L Total Protein 8.7 H (6.3-8.2) g/dL Albumin 5.0 (3.5-5.0) g/dL Globulin 3.7 (1.7-4.1) g/dL Albumin/Globulin Ratio 1.4 (1.0-2.8) MDM Narrative Medical decision making narrative: 74-year-old female referred from urgent care because of confusion. She is fully oriented, she does not have focal neurologic findings she does not have evidence of an acute encephalopathy she is not intoxicated. Patient is reassured and discharged to home Discharge Plan Departure Clinical Impression: Confusion, Dysuria Activity Restrictions/Additional Instructions: Emergency department exam today is reassuring. I do not think any further Emergency evaluation for confusion warranted, I do recommend that you follow up with your primary care provider. as we discussed, your urinalysis from urgent care did not suggest the presence of a urinary tract infection. Continue with previous home care. Follow up soon your primary care provider. If you have new onset of weakness numbness severe headache fevers or other acute symptoms recheck in the emergency department Prescriptions: No Action amoxicillin-pot clavulanate 875-125 mg tablet 1 tab PO BID Qty: 20 0RF venlafaxine 37.5 mg capsule,extended release 24hr 37.5 mg PO DAILY Patient Comments: TAKE 1 CAPSULE BY MOUTH EVERY DAY atorvastatin [Lipitor] 10 mg Tablet 10 mg PO BEDTIME amlodipine 5 mg Tablet 5 mg PO DAILY Referrals: Meri Verde PA-C [Primary Care Provider] -
== END 2025-03-10 12:08 | disposition home or self-care (01) ==
PROVIDERS: Emergency Provider Emergency Medicine; PCP Student in an Organized Health Care Education/Training Program
DX: R41.0 Disorientation, unspecified (principal); R30.0 Dysuria
CPT/HCPCS: 36415; 80053; 85025; 87086; 87210; 99283

== ENCOUNTER → 2025-03-25 14:59 | Outpatient (CLI) | payer MEDICARE, SELFPAY ==
--- NOTE | 2025-03-25 15:01 | DI.MG.S_ITS ---
MM screening mammo BI: 03/25/2025. BI-RADS: 2 CLINICAL: 74-year old female for bilateral screening mammogram. Tyrer-Cuzick lifetime risk of 4.2%. Current reported family history of breast cancer: sister. PRIOR EXAMS 11/16/2023, 11/07/2022, 10/14/2021, 09/14/2021, 09/01/2020, 12/25/2018, 11/17/2017. MAMMOGRAPHY TECHNIQUE: 2D and 3D (tomosynthesis) digital mammographic views obtained, with additional images as needed for full coverage. Current study was also evaluated with a Computer Aided Detection (CAD) system. DENSITY B. There are scattered areas of fibroglandular density. MAMMOGRAPHY FINDINGS Right: Typically-benign vascular calcifications noted. No significant change from comparison. Left: No suspicious mass, asymmetry, microcalcification, or other abnormality seen. No significant change from comparison. IMPRESSION: Right * No evidence of malignancy with benign findings. Left * No evidence of malignancy. RECOMMENDATIONS Bilateral * Annual screening mammography. OVERALL ASSESSMENT CATEGORY BI-RADS-2: Benign. The [employer] recommends annual screening mammography beginning at age 40 for women with average risk of breast cancer. ELECTRONICALLY SIGNED: Stephanie Montesinos M.D. on 03/26/2025 at 09:13:40 AM PT Interpreting Station ID: [id number]
== END ==
PROVIDERS: PCP Student in an Organized Health Care Education/Training Program; Referring Provider Student in an Organized Health Care Education/Training Program; Visit Provider Student in an Organized Health Care Education/Training Program
DX: Z12.31 Encounter for screening mammogram for malignant neoplasm of breast (principal); Z80.3 Family history of malignant neoplasm of breast
CPT/HCPCS: 77063; 77067

== ENCOUNTER → 2025-09-11 12:04 | Outpatient (CLI) | payer MEDICARE, SELFPAY ==
--- NOTE | 2025-09-11 12:07 | DI.RAD.S_ITS ---
PROCEDURE: XR DEXA AXIAL SKELETON INDICATIONS: Bone Density Screening COMPARISON: [facility], , XR DEXA AXIAL SKELETON, 11/03/2021, 12:54. [facility], CR, XR DEXA AXIAL SKELETON, 09/25/2020, 11:51. FINDINGS: Lumbar Spine: Bone mineral density 0.699 g/cm2, T score -3.2, decreased by 16.5%. Left Femoral Neck: Bone mineral density 0.572 g/cm2, T score -2.5. Left Hip: Bone mineral density 0.703 g/cm2, T score -2.0, no significant change compared to prior. Fracture Risk Calculation (when applicable): 10-year fracture risk of a major osteoporotic fracture 17 percent and of a hip fracture 5.6 percent. (T score greater or equal to -1.0 to: NORMAL) (T score from -1.1 to -2.4: OSTEOPENIA) (T score less than or equal to -2.5: OSTEOPOROSIS) IMPRESSION: Osteoporosis by WHO classification. Follow-up guidelines as follows: Osteoporosis: Consider a repeat DEXA and Vertebral Fracture Assessment (VFA) exam in 2 years or sooner if medically necessary, to reassess this patient's status. Osteopenia: Consider a repeat DEXA in 2-3 years to reassess this patient's status, or if there is a new clinical indication. Normal: Consider a repeat DEXA in 5 years or sooner, or if there is a new clinical indication. All treatment decisions require clinical judgment and consideration of individual patient factors, including patient preferences, comorbidities, previous drug use, risk factors not captured in the FRAX model (e.g., frailty, falls, vitamin D deficiency, increased bone turnover, interval significant decline in bone density ) and possible under- or over-estimation of fracture risk by FRAX. In addition, the NOF Guide recommends that FDA-approved medical therapies be considered in postmenopausal women and men age >= 50 years with a: * Hip or vertebral (clinical or morphometric) fracture * T-score of <=-2.5 at the spine or hip * Ten-year fracture probability by FRAX of >= 3% for hip fracture or >=20% for major osteoporotic fracture. Dictated by: Brad Morton M.D. on 09/13/2025 at 13:27 Approved by: Brad Morton M.D. on 09/13/2025 at 13:27
== END ==
LOC: RAD 12:05
PROVIDERS: PCP Family Medicine; Referring Provider Family Medicine; Visit Provider Family Medicine
DX: M81.0 Age-related osteoporosis without current pathological fracture (principal); Z78.0 Asymptomatic menopausal state
CPT/HCPCS: 77080